=== PATIENT | male | born 1960 | race Caucasian/White ===

== ENCOUNTER 2018-07-28 09:28 | Outpatient (CLI) | payer OTHER, SELFPAY ==
[2018-07-28 09:37] VITALS: BP 116/79; PULSE 76; RESP 18; TEMP 36.5; O2SAT 97
--- NOTE | 2018-07-28 10:05 | DI.RAD_ITS ---
SYMPTOM/DIAGNOSIS: LUMBAR EPIDURAL STEROID INJECTION, BACK PAIN C-ARM: Fluoroscopy Time: 18.3 seconds C-arm fluoroscopy was utilized by Dr. Garcia. Please see Dr. Garcia's procedure note. Hard copies show injection in what appears to be the epidural space at the L 5-S 1 level.
[2018-07-28] MEDS: Dexamethasone Sod. Phos./Pres-Free 10 MG/ML VIAL IJ (10:09)
[2018-07-28 10:14] VITALS: BP 124/84; PULSE 70; RESP 20; O2SAT 99
[2018-07-28] MEDS: Omnipaque 240 MG/ML 50 ML BTL IJ (10:14)
--- NOTE | 2018-07-28 13:42 | PDOC.PAIN ---
[facility] Procedure Note Lumbar Epidural Steroid Injection Procedure Note COMMENTS: Previously evaluated. DX: Lumbosacral radiculopathy ROSCOE FORRESTER has been referred [facility] for lumbar epidural steroid injection. The patient was greeted by the nurse who verified patients name and . Patient was then taken to the fluoroscopy suite. The patient was interviewed and the medial record reviewed. There were no medical, pharmacologic, radiographic, or other structural contraindications to attempting fluoroscopically guided lumbar epidural steroid injection. Risks and expected side effects as well as potential benefits of the procedure were reviewed and voiced concerns expressed. The patient consent form was signed and witnessed. Standard patient time-out procedure was performed. The patient was placed in the prone position on the fluoroscopy table and automated blood pressure cuff and pulse oximeter applied. The skin entry point for entering/approaching the epidural space at the left side of the L5-S1 interspace and marked. Following thorough chlorhexadine preparation of the skin and draping and 1% lidocaine infiltration of the skin entry point and subcutaneous tissues, a 18 gauge Touhy needle was placed under fluoroscopic guidance and with loss of resistance technique into the epidural space. Needle tip placement and depth were aided and confirmed by fluoroscopy. There was no paresthesia or return of blood or CSF through the needle. 1 cc's of Omnipaque 240 was injected with clear epidural spread confirmed with fluoroscopy. 15 mg of Dexamethasone was injected. There was not any unusual discomfort expressed by ROSCOE FORRESTER. Patient's vital signs were stable throughout the procedure and were as recorded in nursing records. Follow up plans and appointments were discussed with patient. Post procedure instruction was given as documented in nursing records and having met discharge criteria and was discharged from the [facility]. COMMENTS: No problems.
== END 2018-07-28 09:48 ==
PROVIDERS: PCP Internal Medicine Sleep Medicine; Visit Provider Preventive Medicine Occupational Medicine
DX: M54.17 Radiculopathy, lumbosacral region (principal)
CPT/HCPCS: 62323; 72100; Q9967